=== PATIENT | female | born 1975 | race Two or more races ===

== ENCOUNTER 2025-10-29 09:25 | Day surgery (SDC) | payer OTHER, MEDICAID, SELFPAY ==
--- NOTE | 2025-10-28 10:47 | EKG_ITS ---
[facility] Test Date: 2025-10-28 Pat Name: HU SIMONLOTTIEMONSERRAT Department: Room: - Gender: Female Layer Up: MALIA : 1975 Requested By: Dre Lozada Order Number: [id number] Reading MD: Dre Lozada Measurements Intervals Ragland Rate: 75 P: 59 AZ: 153 QRS: 16 QRSD: 99 T: 70 QT: 395 QTc: 444 Interpretive Statements SINUS RHYTHM No previous ECG available for comparison /store/S0/[id number]/ecg/[id number].pdf
[2025-10-28 10:59] VITALS: BMI 32.3
[2025-10-28 12:17] LABS: Basophils # (Auto) 0.1 Thou/mm3 (0.0-0.2); Basophils % (Auto) 1 % (0-2.5); Eosinophils # (Auto) 0.1 Thou/mm3 (0.0-0.5); Eosinophils % (Auto) 2 % (0-10); Hematocrit 42.1 % (36.0-46.0); Hemoglobin 13.8 g/dL (12.0-16.0); Immature Granulocytes Auto 0.01 Thou/mm3 (0.00-0.00); Lymphocytes # (Auto) 2.4 Thou/mm3 (1.0-4.8); Lymphocytes % (Auto) 35 % (10-50); Mean Corpuscular HGB Conc 32.8 g/dl (31.0-37.0); Mean Corpuscular Hemoglobin 28.2 pg (25.0-35.0); Mean Corpuscular Volume 86 fL (80-100); Monocytes # (Auto) 0.7 Thou/mm3 (0.0-0.8); Monocytes % (Auto) 10 % (0-12); Neutrophils # (Auto) 3.6 Thou/mm3 (1.8-7.7); Neutrophils % (Auto) 52 % (37-80); Nucleated Red Blood Cell # 0.00 Thou/mm3 (0.00-0.00); Nucleated Red Blood Cell % 0 /100 WBC (0); Platelet Count 315 Thou/mm3 (140-440); RDW Standard Deviation 39.5 fL (36.4-46.3); Red Blood Count 4.89 Miln/mm3 (4.00-5.20); White Blood Count 6.8 Thou/mm3 (3.6-11.0)
[2025-10-28 12:23] LABS: INR 1.0 (0.9-1.3); Partial Thromboplastin Time 28.7 Seconds (22.0-36.0); Prothrombin Time 10.2 Seconds (9.0-12.2)
[2025-10-28 12:28] LABS: Alanine Aminotransferase 18 U/L (10-49); Albumin, Serum 4.6 gm/dL (3.5-5.0); Albumin/Globulin Ratio 1.6 (1.2-2.2); Alkaline Phosphatase 121 U/L (46-116); Anion Gap 9 (7-16); Aspartate Amino Transferase 28 U/L (0-34); BUN/Creatinine Ratio 20 Ratio (12-20); Bilirubin,Total 0.4 mg/dL (0.3-1.2); Blood Urea Nitrogen 12 mg/dL (9-23); Calcium 9.2 mg/dL (8.3-10.6); Calcium (Corrected) 9.2 mg/dL (8.5-10.1); Carbon Dioxide 27.9 mMol/L (20.0-31.0); Chloride 107 mMol/L (98-107); Creatinine (Component) 0.6 mg/dL (0.6-1.3); Estimated Creatinine Clearance 104.5 mL/min (>60); Globulin 2.9 gm/dL (2.3-3.5); Glucose 90 mg/dL (74-106); Osmolality,Calculated 286 (275-295); Potassium 3.9 mMol/L (3.4-5.1); Sodium 144 mMol/L (136-145); Total Protein 7.5 gm/dL (5.7-8.2); eGFR > 60 See Note
[2025-10-29] VITALS (8 sets, daily range): BP systolic 147–157; BP diastolic 85–95; PULSE 76–97; RESP 16–20; TEMP 36.2–36.4; O2SAT 95–98; BMI 31.7
--- NOTE | 2025-10-29 14:01 | SUR.PHASEI ---
1401 patient arrived to recovery resting comfortably in [facility], drowsy and able to respond to verbal prompting, on oxygen 8L via oxy mask, breathing unlabored, vitals signs stable, denies pain and nausea, dressing intact to left shoulder; bonifacio, adaptic soaked in betadine, fluffs, abd, medipore tape, no bleeding noted, report received from Dr. Zimmerman and Ivis MENDIETA
--- NOTE | 2025-10-29 14:25 | PD.SUROPNT ---
Date of Procedure 10/29/25 Pre Op Diagnosis 1. Left rotator cuff tear 2 left shoulder impingement syndrome Post Op Diagnosis Same Procedure 1. Excision lateral end of the clavicle 2 excision coracoacromial ligament 3 acromioplasty 4. Repair of rotator cuff 5. Manipulation under anesthesia Findings Refer dictation Procedure Description The patient was given general endotracheal anesthesia. The left shoulder block was also given. Once satisfactory anesthesia was achieved patient was put in about 45?? sitting position with sandbag underneath the left shoulder blade. The part was thoroughly prepped and draped. A skin incision was made at the AC joint extending proximally towards the neck for a half inches and distally towards the arm for about couple of inches. Deeper dissection was carried out. Bleeding vessels were electrocoagulated as and when encountered. The soft tissue was reflected. Following that AC joint was exposed and AC joint was exposed. It revealed significant osteoarthritis changes with inferior spur coming out from the lateral end of the clavicle. The deltoid muscle was reflected from the anterior and lateral aspect of the acromial process. It revealed 3 to 4 mm long anterior and 2 to 3 mm long lateral osteophytes coming out from acromial process. Following that a periosteal elevator was placed underneath the lateral end of the clavicle and lateral 3-4 mm along with the spur was excised. The coracoacromial ligament was removed. With the help of saw the 2 mm anterior and 2 mm lateral aspect of the acromial process along with the osteophytes were excised. With the help of curved osteotome the undersurface of the Acromial processes was chiseled out. That made more room between the superior surface of the head of the humerus and undersurface of the acromial process. Following that the rotator cuff was inspected. It revealed an oval tear, however most of the fibers were attached to the greater tuberosity. Wound was irrigated with antibiotic solution every 4-5 minutes. The left shoulder was manipulated at this time. Full range of abduction for flexion was achieved. The rotator cuff tear was repaired with 2-0 Vicryl. 2 drill holes were made on the acromial process and deltoid muscle was stitched back to it. Some reinforcement sutures were placed. The subcutaneous tissue was then closed with the help of 2-0 Vicryl and 3-0 Vicryl in layers. The skin was closed with bonifacio. After cleaning the wound with hydrogel proximal solution and sterile dressing was applied. Patient was taken to the recovery room in good condition. Estimated blood loss 20 mL. Prognosis in this case is good. Anesthesia GETA and other Pathology / specimen None Estimated Blood Loss 20 Surgeon Dre Jung MD Surgical Staff Operation Date: 10/29/25 11:15 Case Staff Anesthesiologist: Saad Zimmerman
[2025-10-29] MEDS: fentaNYL CIT INJ 50 mCg/ML AMP 2ML 25 MCG IVP (14:27)
--- NOTE | 2025-10-29 14:56 | ESHP_ITS ---
RE: MEHDIBOBOHU CERNA : 1975 DATE OF ADMISSION: 10/29/2025 Patient came to my office on 10/28/2025 for detailed preop history and physical examination. HISTORY OF PRESENTING COMPLAINT: As per patient, patient has got pain in the left shoulder. It is going on for a year but last 6 months are extremely painful. Unable to sleep. Patient graded intensity of pain to be a 7-8 out of 10. Unable to raise the left arm above the shoulder level. Quality of life and activity of daily living is affected. Conservative treatment did not help her. PAST MEDICAL HISTORY: Patient has a history of high blood pressure. No history of diabetes mellitus, asthma, seizure, chest pain, myocardial infarction, or bleeding disorder. PAST SURGICAL HISTORY: Nil known. DRUG HISTORY: Patient is on lisinopril. ALLERGIES: NIL KNOWN. FAMILY HISTORY AND SOCIAL HISTORY: Patient denies smoking, drinking. Not working. PHYSICAL EXAMINATION: GENERAL: Normal built lady. VITAL SIGNS: Pulse is 92 per minute. Blood pressure is 136/84. NECK: Soft, supple, no mass felt. Trachea is centrally placed. CARDIOVASCULAR: First and second heart sound normal. No murmur heard. RESPIRATORY: Bilateral vesicular breath sounds. CHEST: Clear. ABDOMEN: No mass felt. Bowel sounds present. Soft and scaphoid. BREAST: Not indicated in this case. Patient is advised to see the family physician for regular examination. EXTREMITIES: Left shoulder examination: 2+ tenderness at AC joint and also at subacromial and sub-bursal space. Active range of motion 0-80 degrees of abduction, 0-80 degrees of forward flexion. Internal rotation is severely restricted and painful. Impingement sign, a Radha test, and drop arm test is positive. 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 Since patient is symptomatic and her quality of life is affected, therefore rotator cuff surgery was discussed and advised. I explained that I do open surgery. I further explained that in case she wants arthroscopic surgery, I may have to refer her out. However, patient has stated she would like me to go ahead with the open surgery. With the help of posters and diagram, it was explained to her. Risk with anesthesia was explained and that includes but not limited to reaction to anesthetic agents, cardiac arrest, and rarely it might be fatal. Risk with operation includes infection, and if that happens, patient may need further surgical procedure. Other risks include delayed healing, wound dehiscence, etc. Indeed physical therapy is very important component for successful outcome of the surgery. Hence full cooperation will go a long way in good recovery. Patient is clear for surgical procedure. Surgery booked for 10/29/2025. Appropriate lab work is done. DT: 14:32:26 TT: 14:55:00 Ref: [id number] - TID: [id number]
--- NOTE | 2025-10-29 15:21 | SUR.PHASEII ---
1521 Patient meets discharge criteria from recovery, awake and alert, breathing unlabored, vital signs stable, denies pain and nausea, dressing intact with arm sling; no bleeding noted, voided in the restroom prior to discharge, assisted with dressing into her clothing by this manual writer, discharge instructions given to patient and patients with the assistance of the hospital wedding planning internship Estrella; patient signed discharge instructions. Patient given all her belongings prior to discharge, transported via wheelchair and left in a private vehicle.
== END 2025-10-29 15:21 | disposition home or self-care (01) ==
PROVIDERS: PCP Physician Assistant; Referring Provider Orthopaedic Surgery; Visit Provider Orthopaedic Surgery
PROC: (CPT 23412; principal; 2025-10-29 11:15)
DX: M75.102 Unspecified rotator cuff tear or rupture of left shoulder, not specified as traumatic (principal); M75.42 Impingement syndrome of left shoulder; Z01.810 Encounter for preprocedural cardiovascular examination; M19.012 Primary osteoarthritis, left shoulder
CPT/HCPCS: 23412; 23120; 36415; 80048; 80053; 85025; 85610; 85730; 93005; A4649; J0131; J0690; J1100; J1580; J1885; J2250; J2405; J2704; J2795; J3010; J3490